=== PATIENT | female | born 1995 | race African-American/Black ===

== ENCOUNTER 2019-10-12 14:31 | Emergency (ER) | payer MEDICAID ==
[~2019-10-12] VITALS: Ht 170.2 cm; Wt 95.3 kg
[~2019-10-12 14:31] MED LIST: ACETAMINOPHEN-1 EAC1 ORAL; CLEOCIN HCL300 MG PO
[2019-10-12 14:38] VITALS: BP 110/59
--- NOTE | 2019-10-12 15:01 | Emergency Room Report ---
History of Present Illness General Chief Complaint: Abdominal Pain Source: Patient Present Illness HPI 24-year-old female with no significant past medical history here complaining of diffuse abdominal pain, diarrhea and one bout of nonbloody emesis that started 3 days ago. Patient also has her 1-year-old baby with her with similar symptoms. Denies any cough or congestion, shortness of breath, loss of taste and smell, headache and dizziness. Patient reports that about a week ago they both came in contact with a confirmed COVID positive patient and 3 days later started being symptomatic. Denies any fever and chills. O2 sat and rest of vital signs are within normal limits. Denies any urinary symptoms. Patient reports that she has been going ER to ER to get tested for Covid as does not want to self isolate at home. Denies . Patient is in no distress. 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 Patient History Past Medical History: see triage record Past Surgical History: none Pertinent Family History: none Now: No Immunizations: UTD Reviewed Nursing Documentation: PMH: Agreed; PSxH: Agreed Nursing Documentation-PMH Past Medical History: No Stated History Review of Systems All Other Systems: negative except mentioned in HPI Physical Exam Vital Signs Date Time Temp Pulse Resp B/P (MAP) Pulse Ox O2 Delivery O2 Flow Rate FiO2 10/12/19 14:38 99.5 99 17 110/59 (76) 98 Room Air Sp02 EP Interpretation: reviewed, normal General Appearance: no apparent distress, alert, GCS 15, non-toxic Head: normocephalic, atraumatic Eyes: bilateral eye normal inspection, bilateral eye PERRL ENT: hearing grossly normal, normal pharynx, no angioedema, normal voice Neck: full range of motion, supple/symm/no masses Respiratory: chest non-tender, lungs clear, normal breath sounds, no rhonchi, no retraction, no wheezing, speaking full sentences Cardiovascular #1: regular rate, rhythm, no edema Cardiovascular #2: 2+ carotid (R), 2+ carotid (L), 2+ radial (R), 2+ radial (L) Gastrointestinal: normal bowel sounds, non tender, soft, no mass, no organomegaly, no peritonitis, no bruit, non-distended, no guarding, no hernia, no pulsatile mass, no rebound Rectal: deferred Genitourinary: no CVA tenderness Musculoskeletal: back normal Neurologic: alert, motor strength/tone normal, oriented x3, sensory intact, responsive, speech normal Psychiatric: judgement/insight normal, memory normal, mood/affect normal, no suicidal/homicidal ideation Skin: no rash Lymphatic: no adenopathy Medical Decision Making PA Attestation All diagnoses and treatment plans were reviewed and discussed with my supervising physician Dr. Tavares Diagnostic Impression: Primary Impression: Suspected COVID-19 virus infection Additional Impression: Acute diarrhea ER Course 24-year-old female with no significant past medical history here complaining of diffuse abdominal pain, diarrhea and one bout of nonbloody emesis that started 3 days ago. Patient also has her 1-year-old baby with her with similar symptoms. Denies any cough or congestion, shortness of breath, loss of taste and smell, headache and dizziness. Patient reports that about a week ago they both came in contact with a confirmed COVID positive patient and 3 days later started being symptomatic. Denies any fever and chills. O2 sat and rest of vital signs are within normal limits. Denies any urinary symptoms. Patient reports that she has been going ER to ER to get tested for Covid as does not want to self isolate at home. Denies . Patient is in no distress. Ddx considered but are not limited to: Suspected COVID-19 virus infection, pharyngitis, URI, influenza, gastroenteritis Vital signs: are WNL, pt. is afebrile H&PE are most consistent with: Suspected COVID 19 infection, acute diarrhea ORDERS: Dicyclomine, Zofran, Tylenol ED INTERVENTIONS: None required at this time. DISCHARGE: At this time pt. is stable for d/c to home. Will provide printed patient care instructions, and any necessary prescriptions. Care plan and follow up instructions have been discussed with the patient prior to discharge. Gave information to cross the street for patient to get tested, however I explained to her that it does not change reported for treatment patient still needs to self isolate and have her baby also isolated and stable came in direct contact with a confirmed positive case of COVID. Advised to return to emergency room if worsening symptoms. Last Vital Signs Date Time Temp Pulse Resp B/P (MAP) Pulse Ox O2 Delivery O2 Flow Rate FiO2 10/12/19 14:38 99.5 99 17 110/59 (76) 98 Room Air Disposition: HOME, SELF-CARE Condition: Stable Scripts Acetaminophen* (TYLENOL EXTRA STRENGTH*) 500 Mg Tablet 500 MG ORAL Q8H PRN for Prn Headache/Temp > 101, #30 TAB 0 Refills Prov: Philippe Flores 10/12/19 Ondansetron (Zofran) 4 Mg Tablet 4 MG ORAL Q6H PRN for Nausea & Vomiting, #20 TAB Prov: Philippe Flores 10/12/19 Dicyclomine Hcl* (DICYCLOMINE HCL*) 10 Mg Capsule 10 MG ORAL QID, #20 CAP Prov: Philippe Flores 10/12/19 Referrals: [facility]ERR[facility] (PCP) Patient Instructions: Abdominal Pain, Adult, Diarrhea, Adult, [id number] Additional Instructions: Take medication as directed, follow-up with your primary care provider, if worsening symptoms return to the emergency room at this time you came in direct contact with a confirmed cold with positive patient and you need to self isolate for at least 2 weeks Philippe Flores Oct 12, 2019 15:01
[2019-10-12] MEDS ORDERED: TYLENOL EXTRA500 MG ORAL (15:02)
[2019-10-12] MEDS ORDERED: DICYCLOMINE HCL10 MG ORAL (15:02)
[2019-10-12] MEDS ORDERED: ZOFRAN4 M1 ORAL (15:02)
--- NOTE | 2019-10-12 15:06 | NUR ---
ED Nurse Note: Patient presents to ER due to low abdominal pain, cramping with diarrhea, no blood x 3 days. Able to tolerate oral intake without vomiting. Patient had contact with baby's father who had positive covid test result last week. Reports no cough, fever, chills or dyspnea. No facial grimacing or guarding noted. Bed in lowest position.
--- NOTE | 2019-10-12 15:24 | NUR ---
ER DISCHARGE NOTE: Patient is cleared to be discharged per ERMD. Patient awake, alert, oriented x4. D/C instruction, Covid testing center and home care instruction and prescriptions given to patient. Patient ambulated out with steady gait with all her belongings. Patient left with all the paperworks.
== END 2019-10-12 15:24 | disposition home or self-care (01) ==
LOC: EMR 14:58
DX: R19.7 Diarrhea, unspecified (principal); R10.9 Unspecified abdominal pain
CPT/HCPCS: 99282

== ENCOUNTER 2020-03-30 10:44 | Emergency (ER) | payer MEDICAID ==
[~2020-03-30] VITALS: Ht 170.2 cm; Wt 90.7 kg
[~2020-03-30 10:44] MED LIST changes: +DICYCLOMINE HCL10 MG ORAL; +TYLENOL EXTRA500 MG ORAL; +ZOFRAN4 M1 ORAL
[2020-03-30] MEDS ORDERED: TYLENOL EXTRA500 MG ORAL (11:12)
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
--- NOTE | 2020-03-30 11:20 | NUR ---
ED Nurse Note: Pt cleared by health care Provider for discharge. DC instructions/prescription was given and explained to pt and verbalized understanding of teachings. All medical deviecs such as ID band removed. Pt is AAO x4, ambulatory and left with all personal belongings.
[2020-03-30 17:50] VITALS: BP 116/70
== END 2020-03-30 17:20 | disposition home or self-care (01) ==
LOC: EMR 11:10
DX: R51.9 Headache, unspecified (principal); V43.52XA Car driver injured in collision with other type car in traffic accident, initial encounter; Y92.410 Unspecified street and highway as the place of occurrence of the external cause
CPT/HCPCS: 99282